=== PATIENT | female | born 1995 | race Two or more races ===

== ENCOUNTER 2025-06-22 18:27 | Emergency (ER) | payer OTHER ==
[~2025-06-22] VITALS: Ht 154.9 cm; Wt 58.1 kg
[2025-06-22 20:35] LABS: BASO % 0.4 % (0.1-1.2); EOS # 0.06 (0.04-0.54); EOS % 0.5 % (0.7-7.0); LYMPH # 3.08 (1.18-3.74); LYMPH % 23.8 % (19.3-53.1); MEAN PLATELET VOLUME 9.60 fl (9.4-12.4); MONO # 1.08 (0.24-0.82); MONO % 8.3 % (4.7-12.5); NEUT # 8.66 (1.56-6.13); NEUT % 66.8 % (34.0-71.1); RED CELL DISTRIBUTION WIDTH 17.3 % (11.6-14.4)
[2025-06-22 21:34] LABS: BUN CREA RATIO 22.0 (7.0-25.0); CREATININE SERUM 0.6 mg/dL (0.55-1.02); GFR 117.38; GLUCOSE FASTING 85.0 mg/dL (65-100); OSMOLALITY SERUM 271.0 MOSM/KG (275-295)
[2025-06-22 21:35] LABS: HCG QUANTITATIVE 155309.0 mUI/mL (1-3)
== END 2025-06-22 22:11 | disposition home or self-care (01) ==
LOC: ER 18:27
PROVIDERS: Emergency Medicine
DX: O20.8 Other hemorrhage in early pregnancy (principal); Z3A.09 9 weeks gestation of pregnancy